=== PATIENT | male | born 1960 | race Caucasian/White ===

== ENCOUNTER 2022-08-13 07:07 | Emergency (ER) | payer OTHER ==
[2022-08-13] MEDS ORDERED: Ketorolac Tromethamine 30 MG/ML VIAL ONE (08:25)
[2022-08-13] MEDS ORDERED: Cyclobenzaprine 10 MG TAB ONE (08:25)
== END 2022-08-13 08:36 | disposition home or self-care (01) ==
LOC: ERS 07:07
DX: M25.511 Pain in right shoulder (principal); M25.531 Pain in right wrist; V49.9XXA Car occupant (driver) (passenger) injured in unspecified traffic accident, initial encounter
CPT/HCPCS: 96372; J1885

== ENCOUNTER 2024-10-27 11:00 | Outpatient (CLI) | payer BC | END 2024-10-27 11:01 | disposition home or self-care (01) | LOC: PET 11:00 | PROVIDERS: ATTEND Internal Medicine Hematology & Oncology | DX: Z51.11 Encounter for antineoplastic chemotherapy (principal); C83.30 Diffuse large B-cell lymphoma, unspecified site; K31.89 Other diseases of stomach and duodenum | CPT/HCPCS: 78815; A9552 ==

== ENCOUNTER 2025-08-07 08:45 | Outpatient (CLI) | payer BC | END 2025-08-07 08:46 | disposition home or self-care (01) | LOC: PET 08:45 | PROVIDERS: ATTEND Internal Medicine Hematology & Oncology | DX: C83.30 Diffuse large B-cell lymphoma, unspecified site (principal) | CPT/HCPCS: 78815; A9552 ==